=== PATIENT | female | born 1950 ===

== ENCOUNTER 2024-04-05 06:00 | Day surgery (SDC) | payer OTHER ==
[2024-04-05] MEDS ORDERED: CEFAZOLIN SODIUM 1,000 MG VIAL ONE (07:57)
[2024-04-05] MEDS ORDERED: CHLORHEXIDINE GLUCONATE 120 ML BOTTLE TOP ONE (07:57)
[2024-04-05] MEDS ORDERED: VANCOMYCIN HCL 1,000 MG VIAL ONE (08:13)
[2024-04-05] MEDS ORDERED: MACROBID 100 M100 MG PO (09:16)
[2024-04-05] MEDS ORDERED: TRAM1TAB98 PO (09:17)
== END 2024-04-05 12:45 | disposition home or self-care (01) ==
LOC: CIR.AMB 06:00
PROVIDERS: ATTEND Obstetrics & Gynecology Gynecology
DX: N81.11 Cystocele, midline (principal); N81.6 Rectocele; N81.5 Vaginal enterocele; J45.909 Unspecified asthma, uncomplicated; E16.2 Hypoglycemia, unspecified; Z88.6 Allergy status to analgesic agent